=== PATIENT | male | born 1995 | race Caucasian/White ===

== ENCOUNTER 2020-05-16 22:58 | Emergency (ER) | payer MEDICAID ==
[2020-05-16] MEDS ORDERED: Acetaminophen/oxyCODONE 325-5 MG Tab PO STA (23:15)
[2020-05-16] MEDS ORDERED: Ketorolac 60 MG/2 ML SDV IM ONE (23:16)
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
== END 2020-05-17 00:28 | disposition home or self-care (01) ==
LOC: FB.ED 22:58
DX: S30.22XA Contusion of scrotum and testes, initial encounter (principal); S00.81XA Abrasion of other part of head, initial encounter; S70.311A Abrasion, right thigh, initial encounter; S00.01XA Abrasion of scalp, initial encounter; S20.419A Abrasion of unspecified back wall of thorax, initial encounter; Z88.0 Allergy status to penicillin; Y04.0XXA Assault by unarmed brawl or fight, initial encounter; Y92.039 Unspecified place in apartment as the place of occurrence of the external cause
CPT/HCPCS: 81001; 96372; 99282; 99284; A9270; J1885